=== PATIENT | female | born 1980 | race African-American/Black ===

== ENCOUNTER 2025-04-13 14:20 | Emergency (ER) | payer OTHER ==
[~2025-04-13] VITALS: Ht 172.7 cm; Wt 120.0 kg
[2025-04-13 14:50] LABS: BASOPHILS 0.3 % (0.1-1.2); EOSINOPHILS 0.5 % (0.7-5.8); LYMPHOCYTES 31.1 % (19.3-51.7); MCH 25.5 PG (25.6-32.2); MCHC 31.4 g/dL (32.2-35.5); MCV 81.3 fL (79.4-94.8); MONOCYTES 8.5 % (4.7-12.5); NEUTROPHILS 59.4 % (34.0-71.1); RBC 4.70 M/uL (3.93-5.22)
[2025-04-13 14:58] LABS: INR 1.69 (0.80-1.30); PROTIME 18.8 Sec (11.2-14.2)
[2025-04-13 15:11] LABS: ALT (SGPT) 15.0 U/L (14-59); AST (SGOT) 12.0 U/L (15-37); GLOMERULAR FILTRATION RATE,EST 98.0 mL/min (>60); PROTEIN, TOTAL 8.0 g/dL (6.4-8.2); UREA NITROGEN 8.0 mg/dL (7-18)
[2025-04-13 18:09] VITALS: BP 143/103
--- NOTE | 2025-04-14 00:30 | EKG ---
[facility] [address] [facility] [place] [id number] Signed Normal sinus rhythm with sinus arrhythmia Possible Left atrial enlargement RSR' or QR pattern in V1 suggests right ventricular conduction delay Cannot rule out Anterior infarct , age undetermined Abnormal ECG No previous ECGs available Confirmed by Jamie Jeff MD () on 04/14/2025 12:30:03 AM Electronically Signed By: JAMIE JEFF MD 04/14/25 0030 PATIENT NAME: [id number] Electrocardiogram DATE OF : 76 PHYSICIAN: JAMIE JEFF MD REPORT #: [id number] REPORT IS CONFIDENTIAL AND NOT TO BE RELEASED WITHOUT AUTHORIZATION
== END 2025-04-13 18:09 | disposition home or self-care (01) ==
LOC: ED 14:20
PROVIDERS: Emergency Medicine
DX: R06.02 Shortness of breath (principal); R07.89 Other chest pain; Z86.711 Personal history of pulmonary embolism; Z86.718 Personal history of other venous thrombosis and embolism; Z79.01 Long term (current) use of anticoagulants
CPT/HCPCS: 36415; 71045; 71260; 80053; 83735; 83880; 84484; 84703; 85025; 85610; 93005; 93010; 99285-25; Q9967